=== PATIENT | male | born 1960 ===

== ENCOUNTER 2020-08-04 14:17 | Inpatient (IN) ==
[2020-08-04] MEDS ORDERED: Aspirin 325 MG TABLET PO ONE (14:26)
[2020-08-04 14:56] LABS: Prothrombin Time 11.7 Seconds (9.4-12.1)
[2020-08-04 14:59] LABS: Activated Partial Thrombo Time 28.7 Seconds (26.0-36.0)
[2020-08-04 15:09] LABS: Albumin 3.8 g/dL (3.5-5.7); Albumin/Globulin Ratio 1.2 (1.1-2.2); Bilirubin,Direct 0.6 mg/dL (0.0-0.2); Bilirubin,Indirect 0.9 mg/dL (0.0-1.0); Bilirubin,Total 1.5 mg/dL (0.3-1.0); Globulin 3.3 g/dL (2.4-3.5); Total Protein 7.1 g/dL (6.4-8.9)
[2020-08-04 15:17] LABS: Bilirubin,Urine Negative (Negative); Blood,Urine Small (Negative); Clarity,Urine Clear (Clear); Color,Urine Yellow (Yellow); Glucose,Urine (UA) Normal (Normal); Ketones,Urine Negative (Negative); Leukocyte Esterase,Urine Negative (Negative); Nitrite,Urine Negative (Negative); PH,Urine 6.5 pH Units (5.0-8.0); Protein,Urine Trace mg/dL (Neg-Trace); RBC,Urine 0-3 per hpf (0-3); Specific Gravity,Urine 1.015 (1.010-1.025)
[2020-08-04 15:17] LABS: BUN/Creatinine Ratio 17 (6-26); Blood Urea Nitrogen 5 mg/dL (6-20); Calcium 9.4 mg/dL (8.6-10.3); Carbon Dioxide 31 mEq/L (23-29); Chloride 61 mEq/L (98-107); Glucose 96 mg/dL (70-105); Osmolality,Calculated 217 (280-300); Potassium 2.8 mEq/L (3.5-5.1); Sodium 105 mEq/L (136-145); Troponin I < 0.03 ng/mL (< 0.04); eGFR For African Americans > 60 (> 60); eGFR For Non-African Americans > 60 (> 60)
[2020-08-04] MEDS ORDERED: Potassium Chloride 40 MEQ, Lidocaine 1% 2 ML in D5% in Water 500 ML IVPB ONE (15:27)
[2020-08-04 15:35] LABS: Sodium, Urine 20.3 mEq/L
[2020-08-04 15:56] LABS: Adenovirus Not Detected (Not Detect); Bordetella Pertussis Not Detected (Not Detect); Chlamydophila pneumoniae Not Detected (Not Detect); Coronavirus 229E Not Detected (Not Detect); Coronavirus HKU1 Not Detected (Not Detect); Coronavirus NL63 Not Detected (Not Detect); Coronavirus OC43 Not Detected (Not Detect); Human Metapneumovirus Not Detected (Not Detect); Human Rhinovirus/Enterovirus Not Detected (Not Detect); Influenza A Subtype 2009 H1 Not Detected (Not Detect); Influenza B Not Detected (Not Detect); Mycoplasma pneumoniae Not Detected (Not Detect); Parainfluenza Virus 1 Not Detected (Not Detect); Parainfluenza Virus 2 Not Detected (Not Detect); Parainfluenza Virus 3 Not Detected (Not Detect); Parainfluenza Virus 4 Not Detected (Not Detect); Respiratory Syncytial Virus Not Detected (Not Detect); SARS-CoV-2 Not Detected (Not Detect)
[2020-08-04 16:19] LABS: Basophils % 0.1 %; Hematocrit 41.1 % (37.5-50.1); Hemoglobin 15.5 g/dL (12.9-16.9); Immature Granulocytes % 0.6 % (0-4); Lymphocytes # 0.2 K/mcL (0.6-4.6); Lymphocytes % 2.9 %; Mean Corpuscular Hemoglobin 35.7 pg (28.0-33.3); Mean Corpuscular Volume 94.7 fL (83.0-100.0); Mean Platelet Volume 8.7 fL (9.4-12.4); Monocytes # 0.4 K/mcL (0.0-1.3); Monocytes % 5.2 %; Platelet Count 175 K/mcL (140-400); Red Blood Count 4.34 M/mcL (4.19-5.50); Red Cell Distribution Width 12.2 % (11.5-14.5); Segmented Neutrophils % 91.2 %; White Blood Count 7.7 K/mcL (4.3-11.1)
[2020-08-04 16:26] LABS: Mean Corpuscular HGB Conc 37.7 g/dL (31.6-35.5)
[2020-08-04] MEDS ORDERED: Isovue-370 500 ML BOTTLE IVP ONE (17:59)
[2020-08-04] MEDS ORDERED: *HR* LORazepam 2 MG/ML VIAL IVP PRN (17:59)
[2020-08-04] MEDS ORDERED: Acetaminophen 325 MG TABLET PO PRN (17:59)
[2020-08-04] MEDS ORDERED: Albuterol 2.5 MG/3 ML NEBULIZER IH PRN (17:59)
[2020-08-04] MEDS ORDERED: Naloxone 0.4 MG/ML INJ IVP PRN (17:59)
[2020-08-04] MEDS ORDERED: haloperidoL 5 MG TABLET PO PRN (18:10)
[2020-08-04] MEDS ORDERED: Sennosides/Docusate Sodium TABLET PO PRN (18:10)
[2020-08-04] MEDS ORDERED: Nitroglycerin 0.4 MG TAB.SUBL SL PRN (18:10)
[2020-08-04] MEDS ORDERED: Atropine Sulfate 1% 40 DROP/2 ML BOTTLE SL PRN (18:10)
[2020-08-04] MEDS ORDERED: *HR* LORazepam 0.5 MG TABLET PO PRN (18:10)
[2020-08-04 19:23] LABS: BUN/Creatinine Ratio 18 (6-26); Blood Urea Nitrogen 4 mg/dL (6-20); Calcium 8.6 mg/dL (8.6-10.3); Carbon Dioxide 31 mEq/L (23-29); Chloride 64 mEq/L (98-107); Glucose 116 mg/dL (70-105); Osmolality,Calculated 220 (280-300); Potassium 3.2 mEq/L (3.5-5.1); Sodium 106 mEq/L (136-145); eGFR For African Americans > 60 (> 60); eGFR For Non-African Americans > 60 (> 60)
[2020-08-04 19:29] LABS: Ethanol < 10 mg/dL (Less than 10)
[2020-08-04 19:40] LABS: Amphetamine Screen,Urine Negative ng/mL (Cutoff=1000); Barbiturate Screen,Urine Negative ng/mL (Cutoff=200); Benzodiazepines Screen,Urine Negative ng/mL (Cutoff=200); Cannabinoid Screen,Urine Positive ng/mL (Cutoff = 50); Cocaine Screen,Urine Negative ng/mL (Cutoff= 300); Opiate Screen,Urine Negative ng/mL (Cutoff=300); Phencyclidine Screen,Urine Negative ng/mL (Cutoff=25)
[2020-08-04] MEDS: Ipratropium/Albuterol Neb 3 ML IH SCH ×2 (20:48→23:37)
[2020-08-04] MEDS: Doxycycline 100 MG CAPSULE PO SCH (20:50)
[2020-08-04] MEDS: *HR* LORazepam 1 MG TABLET PO SCH (20:50)
[2020-08-04] MEDS: MethylPREDNISolone 40 MG/ML VIAL IVP SCH (20:50)
[2020-08-04] MEDS: Artificial Tears SOLN 15 ML BOTTLE BOTH EYES SCH (20:50)
[2020-08-04] MEDS ORDERED: Melatonin 3 MG TABLET PO SCH (21:00)
[2020-08-04] MEDS: Thiamine (B-1) 100 MG, Folic Acid 1 MG, MVI, adult with vitamin K 10 ML in 0.9 % Sodi... IVPB SCH (21:30)
[2020-08-04] MEDS: cloZAPine 100 MG TABLET PO SCH (22:10)
[2020-08-04] MEDS: Cefepime HCl 1,000 MG in Water for inj. (sterile) 10 ML IVP SCH (23:45)
[2020-08-05 01:45] LABS: Potassium 3.6 mEq/L (3.5-5.1)
[2020-08-05 03:30] LABS: Eosinophils % 0.2 %; Hematocrit 31.2 % (37.5-50.1); Hemoglobin 11.6 g/dL (12.9-16.9); Immature Granulocytes % 0.5 % (0-4); Lymphocytes # 0.1 K/mcL (0.6-4.6); Lymphocytes % 1.8 %; Mean Corpuscular Hemoglobin 35.5 pg (28.0-33.3); Mean Corpuscular Volume 95.4 fL (83.0-100.0); Mean Platelet Volume 9.2 fL (9.4-12.4); Monocytes # 0.1 K/mcL (0.0-1.3); Monocytes % 1.8 %; Neutrophils # 5.4 K/mcL (1.6-8.9); Platelet Count 167 K/mcL (140-400); Red Blood Count 3.27 M/mcL (4.19-5.50); Segmented Neutrophils % 95.7 %; White Blood Count 5.6 K/mcL (4.3-11.1)
[2020-08-05 03:38] LABS: Alanine Aminotransferase 24 Units/L (7-52); Albumin 3.1 g/dL (3.5-5.7); Albumin/Globulin Ratio 1.2 (1.1-2.2); Alkaline Phosphatase 56 Units/L (34-104); Aspartate Amino Transferase 55 Units/L (13-39); BUN/Creatinine Ratio 19 (6-26); Bilirubin,Direct 0.3 mg/dL (0.0-0.2); Bilirubin,Indirect 0.6 mg/dL (0.0-1.0); Bilirubin,Total 0.9 mg/dL (0.3-1.0); Blood Urea Nitrogen 5 mg/dL (6-20); Carbon Dioxide 31 mEq/L (23-29); Chloride 66 mEq/L (98-107); Globulin 2.5 g/dL (2.4-3.5); Glucose 177 mg/dL (70-105); Magnesium 1.1 mg/dL (1.6-2.6); Osmolality,Calculated 220 (280-300); Phosphorous 2.4 mg/dL (2.7-4.5); Potassium 3.3 mEq/L (3.5-5.1); Sodium 104 mEq/L (136-145); Total Protein 5.6 g/dL (6.4-8.9); eGFR For African Americans > 60 (> 60); eGFR For Non-African Americans > 60 (> 60)
[2020-08-05] MEDS: Ipratropium/Albuterol Neb 3 ML IH SCH ×5 (03:52→19:59)
[2020-08-05 04:43] LABS: Mean Corpuscular HGB Conc 37.2 g/dL (31.6-35.5)
[2020-08-05] MEDS ORDERED: 0.9 % Sodium Chloride 250 ML IVC SCH (05:15)
[2020-08-05] MEDS ORDERED: 0.9 % Sodium Chloride 1,000 ML IVC SCH (05:24)
[2020-08-05] MEDS: MethylPREDNISolone 40 MG/ML VIAL IVP SCH (05:30)
[2020-08-05 07:23] LABS: BUN/Creatinine Ratio 21 (6-26); Blood Urea Nitrogen 6 mg/dL (6-20); Calcium 8.1 mg/dL (8.6-10.3); Carbon Dioxide 31 mEq/L (23-29); Chloride 67 mEq/L (98-107); Glucose 175 mg/dL (70-105); Osmolality,Calculated 224 (280-300); Potassium 3.2 mEq/L (3.5-5.1); Sodium 106 mEq/L (136-145); eGFR For African Americans > 60 (> 60); eGFR For Non-African Americans > 60 (> 60)
[2020-08-05] MEDS: Cefepime HCl 1,000 MG in Water for inj. (sterile) 10 ML IVP SCH ×3 (08:27→23:58)
[2020-08-05] MEDS: Artificial Tears SOLN 15 ML BOTTLE BOTH EYES SCH ×5 (08:28→23:55)
[2020-08-05] MEDS: *HR* LORazepam 1 MG TABLET PO SCH ×2 (08:28→21:32)
[2020-08-05] MEDS: cloZAPine 100 MG TABLET PO SCH ×2 (08:29→21:32)
[2020-08-05] MEDS: Famotidine 20 MG TABLET PO SCH (08:29)
[2020-08-05] MEDS: Doxycycline 100 MG CAPSULE PO SCH ×2 (08:29→21:33)
[2020-08-05 08:33] LABS: ABG Base Excess 5 mEq/L (-2 to 3); ABG HCO3 33 mEq/L (21-27); ABG Oxygen Saturation 87 % (95-98); ABG PCO2 68 mmHg (35-45); ABG PO2 62 mmHg (85-104); ABG TCO2 35 mEq/L (20-26)
[2020-08-05] MEDS ORDERED: polyethylene glycoL 3350 17 GM POWD.PACK PO SCH (09:00)
[2020-08-05] MEDS ORDERED: Finasteride 5 MG TABLET PO SCH (09:00)
[2020-08-05] MEDS ORDERED: Pantoprazole 40 MG VIAL IVP SCH (09:00)
[2020-08-05] MEDS ORDERED: Albumin Human 5% 12.5 GM/250 ML IV.SOLN ONE (09:02)
[2020-08-05] MEDS: Midazolam HCl 50 MG/100 ML IV.SOLN IVC SCH (09:52)
[2020-08-05] MEDS: FentaNYL (PF) 1,000 MCG/100 ML IV.SOLN IVC SCH ×2 (09:53→16:17)
[2020-08-05] MEDS: Chlorhexidine Rinse 15 ML MOUTHWASH MM SCH ×2 (10:35→21:40)
[2020-08-05] MEDS: Potassium Phosphate 44 MEQ in 0.9 % Sodium Chloride 250 ML IVPB PRN (10:36)
[2020-08-05] MEDS: Norepinephrine 4 MG/254 ML IV.SOLN IVC SCH ×3 (10:37→20:00)
[2020-08-05 11:11] LABS: Chol/HDL Ratio 1.6 (0-4.9)
[2020-08-05] MEDS: Budesonide/Formoterol 160/4.5 1 PUFF INH IH SCH ×2 (11:48→20:00)
[2020-08-05] MEDS ORDERED: *HR* 3% Sodium Chloride 500 ML IV.SOLN IVC ONE (12:15)
[2020-08-05] MEDS ORDERED: *HR* Succinylcholine 200 MG/10 ML VIAL IVP ONE (12:24)
[2020-08-05] MEDS ORDERED: *HR* Propofol 200 MG/20 ML VIAL IVP ONE (12:24)
[2020-08-05] MEDS ORDERED: *HR* Etomidate 40 MG/20 ML VIAL IVP ONE (12:24)
[2020-08-05] MEDS ORDERED: *HR* Midazolam HCl 5 MG/5 ML VIAL IVP ONE (12:24)
[2020-08-05 13:36] LABS: BUN/Creatinine Ratio 29 (6-26); Blood Urea Nitrogen 7 mg/dL (6-20); Calcium 7.9 mg/dL (8.6-10.3); Carbon Dioxide 25 mEq/L (23-29); Chloride 70 mEq/L (98-107); Glucose 220 mg/dL (70-105); Osmolality,Calculated 231 (280-300); Sodium 108 mEq/L (136-145); eGFR For African Americans > 60 (> 60); eGFR For Non-African Americans > 60 (> 60)
[2020-08-05 13:57] LABS: ABG Base Excess 1 mEq/L (-2 to 3); ABG HCO3 24 mEq/L (21-27); ABG Oxygen Saturation 100 % (95-98); ABG PCO2 33 mmHg (35-45); ABG PH 7.48 pH Units (7.32-7.45); ABG PO2 343 mmHg (85-104); ABG TCO2 25 mEq/L (20-26); Blood Gas Modality VC+; Blood Gas VT 480 cc
[2020-08-05] MEDS: Pantoprazole 40 MG in 0.9 % Sodium Chloride Mini Bag 100 ML IVC SCH ×3 (16:15→21:40)
[2020-08-05 16:20] LABS: BUN/Creatinine Ratio 28 (6-26); Blood Urea Nitrogen 7 mg/dL (6-20); Calcium 8.1 mg/dL (8.6-10.3); Carbon Dioxide 25 mEq/L (23-29); Chloride 76 mEq/L (98-107); Glucose 244 mg/dL (70-105); Magnesium 1.7 mg/dL (1.6-2.6); Osmolality,Calculated 242 (280-300); Phosphorous 3.3 mg/dL (2.7-4.5); Sodium 113 mEq/L (136-145); eGFR For African Americans > 60 (> 60); eGFR For Non-African Americans > 60 (> 60)
[2020-08-05 17:01] LABS: VBG Ionized Calcium 1.04 mmol/L (1.15-1.35)
[2020-08-05] MEDS: Albumin Human 5% 12.5 GM/250 ML IV.SOLN IVC SCH ×2 (17:13→17:57)
[2020-08-05] MEDS: Thiamine (B-1) 100 MG, Folic Acid 1 MG, MVI, adult with vitamin K 10 ML in 0.9 % Sodi... IVPB SCH (17:23)
[2020-08-05 21:18] LABS: Hematocrit 29.6 % (37.5-50.1); Hemoglobin 11.1 g/dL (12.9-16.9)
[2020-08-05] MEDS ORDERED: D5% in Water 1,000 ML IVC SCH (21:30)
[2020-08-05] MEDS: Norepinephrine 8 MG in 0.9 % Sodium Chloride 250 ML IVC SCH (23:51)
[2020-08-05] MEDS ORDERED: *HR* Dextrose 50 % in Water (Vial) 50 ML VIAL IVP PRN (23:59)
[2020-08-05] MEDS ORDERED: D5% in Water 1,000 ML IVC PRN (23:59)
[2020-08-05] MEDS ORDERED: Dextrose Gel 15 GM/37.5 ML TUBE PO PRN ×2 (23:59)
[2020-08-06] MEDS: Ipratropium/Albuterol Neb 3 ML IH SCH ×7 (00:17→23:40)
[2020-08-06] MEDS: Insulin LISPRO 300 UNITS/3 ML VIAL SQ SCH ×5 (00:22→23:52)
[2020-08-06] MEDS ORDERED: D5% in Water 1,000 ML IVC SCH ×2 (00:54→07:00)
[2020-08-06] MEDS: Potassium Chloride 40 MEQ/200 ML BAG IVPB PRN ×2 (00:59→23:41)
[2020-08-06] MEDS: Pantoprazole 40 MG in 0.9 % Sodium Chloride Mini Bag 100 ML IVC SCH ×5 (03:04→23:54)
[2020-08-06] MEDS: Artificial Tears SOLN 15 ML BOTTLE BOTH EYES SCH ×6 (03:43→23:51)
[2020-08-06] MEDS: Norepinephrine 8 MG in 0.9 % Sodium Chloride 250 ML IVC SCH (04:09)
[2020-08-06 04:18] LABS: VBG Ionized Calcium 1.13 mmol/L (1.15-1.35)
[2020-08-06 04:30] LABS: Eosinophils % 0.2 %; Hematocrit 27.4 % (37.5-50.1); Hemoglobin 9.9 g/dL (12.9-16.9); Immature Granulocytes % 0.3 % (0-4); Lymphocytes # 0.1 K/mcL (0.6-4.6); Lymphocytes % 0.7 %; Mean Corpuscular HGB Conc 36.1 g/dL (31.6-35.5); Mean Corpuscular Hemoglobin 35.2 pg (28.0-33.3); Mean Corpuscular Volume 97.5 fL (83.0-100.0); Mean Platelet Volume 9.4 fL (9.4-12.4); Monocytes # 0.8 K/mcL (0.0-1.3); Monocytes % 6.3 %; Neutrophils # 12.1 K/mcL (1.6-8.9); Platelet Count 173 K/mcL (140-400); Red Blood Count 2.81 M/mcL (4.19-5.50); Red Cell Distribution Width 12.2 % (11.5-14.5); Segmented Neutrophils % 92.5 %
[2020-08-06 04:38] LABS: White Blood Count 13.1 K/mcL (4.3-11.1)
[2020-08-06 04:43] LABS: BUN/Creatinine Ratio 17 (6-26); Blood Urea Nitrogen 6 mg/dL (6-20); Calcium 7.8 mg/dL (8.6-10.3); Carbon Dioxide 27 mEq/L (23-29); Chloride 85 mEq/L (98-107); Glucose 200 mg/dL (70-105); Magnesium 1.3 mg/dL (1.6-2.6); Osmolality,Calculated 245 (280-300); Phosphorous 1.6 mg/dL (2.7-4.5); Potassium 3.4 mEq/L (3.5-5.1); Sodium 116 mEq/L (136-145); eGFR For African Americans > 60 (> 60); eGFR For Non-African Americans > 60 (> 60)
[2020-08-06 05:11] LABS: Platelet Estimate Normal (Normal)
[2020-08-06] MEDS: Doxycycline 100 MG in 0.9 % Sodium Chloride Mini Bag 100 ML IVPB SCH ×2 (05:38→18:26)
[2020-08-06 05:53] LABS: ABG Base Excess 2 mEq/L (-2 to 3); ABG HCO3 28 mEq/L (21-27); ABG Oxygen Saturation 94 % (95-98); ABG PCO2 48 mmHg (35-45); ABG PH 7.37 pH Units (7.32-7.45); ABG PO2 72 mmHg (85-104); ABG TCO2 30 mEq/L (20-26); Blood Gas Modality ASSIST CONTROL; Blood Gas VT 480 cc
[2020-08-06] MEDS: Potassium Phosphate 44 MEQ in 0.9 % Sodium Chloride 250 ML IVPB PRN (06:25)
[2020-08-06] MEDS: Budesonide/Formoterol 160/4.5 1 PUFF INH IH SCH ×2 (07:55→20:17)
[2020-08-06] MEDS: Famotidine 20 MG TABLET PO SCH ×2 (08:23→09:06)
[2020-08-06] MEDS: Cefepime HCl 1,000 MG in Water for inj. (sterile) 10 ML IVP SCH ×3 (08:23→23:50)
[2020-08-06] MEDS: Chlorhexidine Rinse 15 ML MOUTHWASH MM SCH ×2 (08:23→20:28)
[2020-08-06] MEDS: Midazolam HCl 50 MG/100 ML IV.SOLN IVC SCH (08:27)
[2020-08-06] MEDS: *HR* LORazepam 1 MG TABLET PO SCH ×2 (08:28→20:26)
[2020-08-06] MEDS: Phenylephrine 10 MG in 0.9 % Sodium Chloride 250 ML IVC SCH ×5 (08:28→22:23)
[2020-08-06] MEDS: cloZAPine 100 MG TABLET PO SCH ×2 (08:28→20:27)
[2020-08-06] MEDS: D5% in Water 1,000 ML IVC SCH ×5 (08:30→23:52)
[2020-08-06 12:57] LABS: Hematocrit 26.7 % (37.5-50.1); Hemoglobin 9.8 g/dL (12.9-16.9)
[2020-08-06 18:49] LABS: Magnesium 1.5 mg/dL (1.6-2.6); Phosphorous 3.5 mg/dL (2.7-4.5); Potassium 3.7 mEq/L (3.5-5.1)
[2020-08-06] MEDS: Thiamine (B-1) 100 MG, Folic Acid 1 MG, MVI, adult with vitamin K 10 ML in 0.9 % Sodi... IVPB SCH (19:12)
[2020-08-07] MEDS: Phenylephrine 10 MG in 0.9 % Sodium Chloride 250 ML IVC SCH ×4 (01:48→11:34)
[2020-08-07] MEDS: Ipratropium/Albuterol Neb 3 ML IH SCH ×6 (03:45→23:56)
[2020-08-07] MEDS: Artificial Tears SOLN 15 ML BOTTLE BOTH EYES SCH ×7 (03:58→23:27)
[2020-08-07 04:13] LABS: VBG Ionized Calcium 1.11 mmol/L (1.15-1.35)
[2020-08-07 04:32] LABS: BUN/Creatinine Ratio 13 (6-26); Blood Urea Nitrogen 4 mg/dL (6-20); Calcium 6.9 mg/dL (8.6-10.3); Carbon Dioxide 25 mEq/L (23-29); Chloride 87 mEq/L (98-107); Glucose 112 mg/dL (70-105); Osmolality,Calculated 236 (280-300); Phosphorous 2.4 mg/dL (2.7-4.5); Potassium 4.8 mEq/L (3.5-5.1); Sodium 114 mEq/L (136-145); eGFR For African Americans > 60 (> 60); eGFR For Non-African Americans > 60 (> 60)
[2020-08-07] MEDS: D5% in Water 1,000 ML IVC SCH ×3 (05:14→17:56)
[2020-08-07 05:20] LABS: ABG Base Excess -1 mEq/L (-2 to 3); ABG HCO3 25 mEq/L (21-27); ABG Oxygen Saturation 96 % (95-98); ABG PCO2 51 mmHg (35-45); ABG PO2 87 mmHg (85-104); ABG TCO2 27 mEq/L (20-26); Blood Gas Modality ASSIST CONTROL; Blood Gas VT 480 cc
[2020-08-07] MEDS: Pantoprazole 40 MG in 0.9 % Sodium Chloride Mini Bag 100 ML IVC SCH ×3 (05:22→15:41)
[2020-08-07] MEDS: Doxycycline 100 MG in 0.9 % Sodium Chloride Mini Bag 100 ML IVPB SCH ×2 (05:23→18:19)
[2020-08-07] MEDS: Insulin LISPRO 300 UNITS/3 ML VIAL SQ SCH ×4 (05:24→23:27)
[2020-08-07 06:45] LABS: Hemoglobin 9.3 g/dL (12.9-16.9); Immature Granulocytes % 0.4 % (0-4); Mean Platelet Volume 9.6 fL (9.4-12.4)
[2020-08-07 06:47] LABS: Hematocrit 25.6 % (37.5-50.1); Immature Platelets 4.6 % (1.1-6.1); Lymphocytes # 0.3 K/mcL (0.6-4.6); Lymphocytes % 2.7 %; Mean Corpuscular HGB Conc 36.3 g/dL (31.6-35.5); Mean Corpuscular Hemoglobin 37.1 pg (28.0-33.3); Monocytes % 8.7 %; Platelet Count 155 K/mcL (140-400); Red Blood Count 2.51 M/mcL (4.19-5.50); Red Cell Distribution Width 12.6 % (11.5-14.5); Segmented Neutrophils % 88.2 %; White Blood Count 11.4 K/mcL (4.3-11.1)
[2020-08-07 07:02] LABS: Neutrophils # 10.1 K/mcL (1.6-8.9)
[2020-08-07] MEDS: Budesonide/Formoterol 160/4.5 1 PUFF INH IH SCH ×2 (07:37→20:17)
[2020-08-07] MEDS: Cefepime HCl 1,000 MG in Water for inj. (sterile) 10 ML IVP SCH ×3 (08:06→23:29)
[2020-08-07] MEDS: Chlorhexidine Rinse 15 ML MOUTHWASH MM SCH ×2 (08:11→19:40)
[2020-08-07] MEDS: cloZAPine 100 MG TABLET PO SCH ×2 (08:11→19:40)
[2020-08-07] MEDS: *HR* LORazepam 1 MG TABLET PO SCH ×2 (08:11→19:40)
[2020-08-07] MEDS: Midazolam HCl 50 MG/100 ML IV.SOLN IVC SCH (12:35)
[2020-08-07] MEDS: FentaNYL (PF) 1,000 MCG/100 ML IV.SOLN IVC SCH (12:36)
[2020-08-07] MEDS: Phenylephrine 50 MG in 0.9 % Sodium Chloride 250 ML IVC SCH ×2 (13:43→19:33)
[2020-08-07] MEDS ORDERED: Calcium Gluconate 1gm/50mL 1 GM/50 ML BAG IVPB ONE (16:23)
[2020-08-07] MEDS ORDERED: Ringers Solution, Lactated 500 ML IVC ONE (16:36)
[2020-08-07] MEDS ORDERED: Albumin 25% 25gram/100mL 25 GM/100 ML IV.SOLN IVPB ONE (16:56)
[2020-08-07] MEDS ORDERED: Vasopressin 40 UNIT in D5% in Water 100 ML IVC SCH (17:15)
[2020-08-07] MEDS ORDERED: Bisacodyl 10 MG RECTAL SUPPOSITORY RC SCH (18:10)
[2020-08-07] MEDS ORDERED: Albumin Human 5% 12.5 GM/250 ML IV.SOLN IVPB ONE (20:34)
[2020-08-07 22:15] LABS: Appearance of Body Fluid Hazy (Clear); Volume of Body Fluid 15 mL
[2020-08-08] MEDS: Phenylephrine 50 MG in 0.9 % Sodium Chloride 250 ML IVC SCH ×5 (00:45→21:00)
[2020-08-08] MEDS: Artificial Tears SOLN 15 ML BOTTLE BOTH EYES SCH ×5 (03:41→19:14)
[2020-08-08] MEDS: D5% in Water 1,000 ML IVC SCH ×6 (03:41→22:48)
[2020-08-08] MEDS: Ipratropium/Albuterol Neb 3 ML IH SCH ×6 (03:54→23:21)
[2020-08-08] MEDS: Vasopressin 40 UNIT in D5% in Water 100 ML IVC SCH ×2 (04:08→10:36)
[2020-08-08 04:21] LABS: Eosinophils % 0.1 %; Hematocrit 25.2 % (37.5-50.1); Hemoglobin 8.4 g/dL (12.9-16.9); Immature Granulocytes % 0.7 % (0-4); Immature Platelets 5.6 % (1.1-6.1); Lymphocytes # 0.2 K/mcL (0.6-4.6); Lymphocytes % 1.3 %; Mean Corpuscular HGB Conc 33.3 g/dL (31.6-35.5); Mean Corpuscular Hemoglobin 35.6 pg (28.0-33.3); Mean Corpuscular Volume 106.8 fL (83.0-100.0); Mean Platelet Volume 9.6 fL (9.4-12.4); Monocytes % 8.2 %; Neutrophils # 11.4 K/mcL (1.6-8.9); Nucleated Red Blood Cells 0.2 /100 WBC (0); Platelet Count 124 K/mcL (140-400); Red Blood Count 2.36 M/mcL (4.19-5.50); Red Cell Distribution Width 13.1 % (11.5-14.5); Segmented Neutrophils % 89.7 %; White Blood Count 12.7 K/mcL (4.3-11.1)
[2020-08-08 04:41] LABS: ABG Base Excess 0 mEq/L (-2 to 3); ABG HCO3 29 mEq/L (21-27); ABG Oxygen Saturation 98 % (95-98); ABG PCO2 80 mmHg (35-45); ABG PH 7.17 pH Units (7.32-7.45); ABG PO2 130 mmHg (85-104); ABG TCO2 32 mEq/L (20-26); Blood Gas Modality ASSIST CONTROL; Blood Gas VT 400 cc
[2020-08-08 04:42] LABS: Alanine Aminotransferase 22 Units/L (7-52); Albumin 2.9 g/dL (3.5-5.7); Albumin/Globulin Ratio 1.8 (1.1-2.2); Alkaline Phosphatase 43 Units/L (34-104); Aspartate Amino Transferase 45 Units/L (13-39); BUN/Creatinine Ratio 17 (6-26); Bilirubin,Total 0.5 mg/dL (0.3-1.0); Blood Urea Nitrogen 5 mg/dL (6-20); Calcium 7.5 mg/dL (8.6-10.3); Carbon Dioxide 28 mEq/L (23-29); Chloride 91 mEq/L (98-107); Globulin 1.6 g/dL (2.4-3.5); Glucose 129 mg/dL (70-105); Osmolality,Calculated 247 (280-300); Phosphorous 2.5 mg/dL (2.7-4.5); Potassium 4.5 mEq/L (3.5-5.1); Sodium 119 mEq/L (136-145); Total Protein 4.5 g/dL (6.4-8.9); eGFR For African Americans > 60 (> 60); eGFR For Non-African Americans > 60 (> 60)
[2020-08-08 05:32] LABS: Magnesium 1.5 mg/dL (1.6-2.6)
[2020-08-08] MEDS: Doxycycline 100 MG in 0.9 % Sodium Chloride Mini Bag 100 ML IVPB SCH ×2 (05:40→18:21)
[2020-08-08] MEDS: Pantoprazole 40 MG VIAL IVP SCH ×2 (05:41→18:21)
[2020-08-08] MEDS: Insulin LISPRO 300 UNITS/3 ML VIAL SQ SCH ×3 (05:41→18:16)
[2020-08-08 06:00] LABS: Platelet Estimate Slight Decrease (Normal)
[2020-08-08] MEDS: Budesonide/Formoterol 160/4.5 1 PUFF INH IH SCH ×2 (07:38→19:23)
[2020-08-08] MEDS: Cefepime HCl 1,000 MG in Water for inj. (sterile) 10 ML IVP SCH ×2 (07:58→16:12)
[2020-08-08] MEDS: *HR* LORazepam 1 MG TABLET PO SCH ×2 (07:58→19:16)
[2020-08-08] MEDS: Chlorhexidine Rinse 15 ML MOUTHWASH MM SCH ×2 (07:58→19:18)
[2020-08-08] MEDS: cloZAPine 100 MG TABLET PO SCH ×2 (07:59→19:17)
[2020-08-08] MEDS: Midazolam HCl 50 MG/100 ML IV.SOLN IVC SCH (08:50)
[2020-08-08] MEDS: FentaNYL (PF) 1,000 MCG/100 ML IV.SOLN IVC SCH (08:50)
[2020-08-08 10:38] LABS: Phosphorous 2.5 mg/dL (2.7-4.5)
[2020-08-08] MEDS: 0.9 % Sodium Chloride 1,000 ML IVC SCH (12:40)
[2020-08-08] MEDS ORDERED: Potassium Phosphate 44 MEQ in 0.9 % Sodium Chloride 250 ML IVPB ONE (13:28)
[2020-08-08] MEDS ORDERED: Calcium Gluconate 1gm/50mL 1 GM/50 ML BAG IVPB ONE (13:31)
[2020-08-08 22:20] LABS: VBG Ionized Calcium 1.15 mmol/L (1.15-1.35)
[2020-08-08 22:44] LABS: Magnesium 1.8 mg/dL (1.6-2.6)
[2020-08-09] MEDS: Insulin LISPRO 300 UNITS/3 ML VIAL SQ SCH ×4 (00:15→17:51)
[2020-08-09] MEDS: Cefepime HCl 1,000 MG in Water for inj. (sterile) 10 ML IVP SCH ×3 (00:15→16:48)
[2020-08-09] MEDS: Artificial Tears SOLN 15 ML BOTTLE BOTH EYES SCH ×6 (00:15→20:25)
[2020-08-09] MEDS: D5% in Water 1,000 ML IVC SCH ×4 (01:42→17:52)
[2020-08-09] MEDS: Phenylephrine 50 MG in 0.9 % Sodium Chloride 250 ML IVC SCH ×2 (01:45→10:04)
[2020-08-09] MEDS: 0.9 % Sodium Chloride 1,000 ML IVC SCH ×2 (03:09→13:52)
[2020-08-09] MEDS: Ipratropium/Albuterol Neb 3 ML IH SCH ×5 (03:17→20:53)
[2020-08-09 04:24] LABS: ABG Base Excess 2 mEq/L (-2 to 3); ABG HCO3 30 mEq/L (21-27); ABG Oxygen Saturation 92 % (95-98); ABG PCO2 71 mmHg (35-45); ABG PH 7.23 pH Units (7.32-7.45); ABG PO2 79 mmHg (85-104); ABG TCO2 32 mEq/L (20-26); Blood Gas Modality ASSIST CONTROL; Blood Gas VT 450 cc
[2020-08-09 04:24] LABS: Mean Platelet Volume 9.8 fL (9.4-12.4)
[2020-08-09 04:26] LABS: Eosinophils % 0.1 %; Hematocrit 24.7 % (37.5-50.1); Hemoglobin 8.1 g/dL (12.9-16.9); Immature Granulocytes % 0.6 % (0-4); Immature Platelets 5.4 % (1.1-6.1); Lymphocytes # 0.2 K/mcL (0.6-4.6); Lymphocytes % 1.4 %; Mean Corpuscular HGB Conc 32.8 g/dL (31.6-35.5); Mean Corpuscular Hemoglobin 35.2 pg (28.0-33.3); Mean Corpuscular Volume 107.4 fL (83.0-100.0); Monocytes # 1.5 K/mcL (0.0-1.3); Monocytes % 10.9 %; Nucleated Red Blood Cells 0.1 /100 WBC (0); Platelet Count 118 K/mcL (140-400); Red Cell Distribution Width 13.5 % (11.5-14.5); White Blood Count 13.8 K/mcL (4.3-11.1)
[2020-08-09 04:43] LABS: VBG Ionized Calcium 1.16 mmol/L (1.15-1.35)
[2020-08-09 04:44] LABS: BUN/Creatinine Ratio 29 (6-26); Blood Urea Nitrogen 8 mg/dL (6-20); Calcium 7.3 mg/dL (8.6-10.3); Carbon Dioxide 28 mEq/L (23-29); Chloride 97 mEq/L (98-107); Glucose 92 mg/dL (70-105); Magnesium 2.1 mg/dL (1.6-2.6); Osmolality,Calculated 258 (280-300); Phosphorous 2.4 mg/dL (2.7-4.5); Potassium 5.1 mEq/L (3.5-5.1); Sodium 125 mEq/L (136-145); eGFR For African Americans > 60 (> 60); eGFR For Non-African Americans > 60 (> 60)
[2020-08-09] MEDS: Pantoprazole 40 MG VIAL IVP SCH ×2 (06:14→17:52)
[2020-08-09] MEDS: Doxycycline 100 MG in 0.9 % Sodium Chloride Mini Bag 100 ML IVPB SCH ×2 (06:15→17:52)
[2020-08-09] MEDS: Vasopressin 40 UNIT in D5% in Water 100 ML IVC SCH (06:34)
[2020-08-09 08:09] LABS: Alpha 2 Globulin (PEP) 0.45 g/dL (0.48-1.05); Beta Globulin (PEP) 0.68 g/dL (0.48-1.10)
[2020-08-09 09:44] LABS: IFE Reflexed IFE Done; Immunoglobulin A 394 mg/dL (68-408); Immunoglobulin G 719 mg/dL (768-1632); Immunoglobulin M 284 mg/dL (35-263)
[2020-08-09] MEDS: Chlorhexidine Rinse 15 ML MOUTHWASH MM SCH ×2 (09:58→20:26)
[2020-08-09] MEDS: cloZAPine 100 MG TABLET PO SCH ×2 (09:59→20:26)
[2020-08-09] MEDS: FentaNYL (PF) 1,000 MCG/100 ML IV.SOLN IVC SCH (09:59)
[2020-08-09] MEDS: Midazolam HCl 50 MG/100 ML IV.SOLN IVC SCH (09:59)
[2020-08-09] MEDS: *HR* LORazepam 1 MG TABLET PO SCH (10:02)
[2020-08-09] MEDS: Budesonide/Formoterol 160/4.5 1 PUFF INH IH SCH ×2 (11:46→20:53)
[2020-08-09] MEDS ORDERED: *HR* FentaNYL (PF) 100 MCG/2 ML VIAL IVP PRN (15:27)
[2020-08-09] MEDS ORDERED: Glycopyrrolate 0.2 MG/ML VIAL IVP PRN (15:27)
[2020-08-09] MEDS ORDERED: *HR* LORazepam 2 MG/ML VIAL IVP SCH (15:30)
[2020-08-09] MEDS ORDERED: *HR* LORazepam 2 MG/ML VIAL IVP PRN ×2 (20:52→21:15)
[2020-08-10] MEDS: Ipratropium/Albuterol Neb 3 ML IH SCH ×7 (00:20→22:55)
[2020-08-10] MEDS: Cefepime HCl 1,000 MG in Water for inj. (sterile) 10 ML IVP SCH ×2 (00:33→08:12)
[2020-08-10] MEDS: Artificial Tears SOLN 15 ML BOTTLE BOTH EYES SCH ×5 (00:33→16:52)
[2020-08-10] MEDS: 0.9 % Sodium Chloride 1,000 ML IVC SCH (03:37)
[2020-08-10] MEDS: Pantoprazole 40 MG VIAL IVP SCH ×2 (05:44→16:38)
[2020-08-10] MEDS: Budesonide/Formoterol 160/4.5 1 PUFF INH IH SCH ×2 (07:24→20:07)
[2020-08-10 08:22] LABS: Mean Platelet Volume 9.9 fL (9.4-12.4)
[2020-08-10 08:24] LABS: Hematocrit 25.5 % (37.5-50.1); Hemoglobin 8.5 g/dL (12.9-16.9); Immature Platelets 4.6 % (1.1-6.1); Mean Corpuscular HGB Conc 33.3 g/dL (31.6-35.5); Mean Corpuscular Hemoglobin 36.2 pg (28.0-33.3); Mean Corpuscular Volume 108.5 fL (83.0-100.0); Red Blood Count 2.35 M/mcL (4.19-5.50); Red Cell Distribution Width 13.7 % (11.5-14.5); White Blood Count 12.4 K/mcL (4.3-11.1)
[2020-08-10 12:01] LABS: Blood Urea Nitrogen 5 mg/dL (6-20); Calcium 8.4 mg/dL (8.6-10.3); Carbon Dioxide 30 mEq/L (23-29); Chloride 97 mEq/L (98-107); Glucose 77 mg/dL (70-105); Magnesium 1.6 mg/dL (1.6-2.6); Osmolality,Calculated 270 (280-300); Phosphorous 2.6 mg/dL (2.7-4.5); Potassium 4.5 mEq/L (3.5-5.1); Sodium 132 mEq/L (136-145)
[2020-08-10] MEDS ORDERED: *HR* LORazepam 2 MG/ML VIAL IVP PRN ×2 (13:51→17:34)
[2020-08-10] MEDS ORDERED: Furosemide 20 MG/2 ML VIAL IVP SCH (14:15)
[2020-08-10] MEDS ORDERED: Cefepime HCl 2,000 MG in Water for inj. (sterile) 20 ML IVP SCH ×2 (16:00→18:00)
[2020-08-10] MEDS ORDERED: Water for inj. (sterile) 20 ML IV ONE (16:42)
[2020-08-10] MEDS ORDERED: Sennosides/Docusate Sodium TABLET PO PRN (17:34)
[2020-08-10] MEDS ORDERED: haloperidoL 5 MG TABLET PO PRN (17:34)
[2020-08-10] MEDS ORDERED: Albuterol 2.5 MG/3 ML NEBULIZER IH PRN (17:34)
[2020-08-10] MEDS ORDERED: Naloxone 0.4 MG/ML INJ IVP PRN (17:34)
[2020-08-10] MEDS ORDERED: Acetaminophen 325 MG TABLET PO PRN (17:34)
[2020-08-10] MEDS: Thiamine (B-1) 100 MG in 0.9 % Sodium Chloride 50 ML IVPB SCH (19:23)
[2020-08-10] MEDS: Folic Acid 1 MG in 0.9 % Sodium Chloride 50 ML IVPB SCH (19:23)
[2020-08-11] MEDS: Cefepime HCl 2,000 MG in Water for inj. (sterile) 20 ML IVP SCH ×4 (00:41→23:33)
[2020-08-11] MEDS: Ipratropium/Albuterol Neb 3 ML IH SCH ×6 (03:39→23:56)
[2020-08-11 05:57] LABS: Basophils % 0.1 %; Hematocrit 23.4 % (37.5-50.1); Hemoglobin 7.7 g/dL (12.9-16.9); Immature Granulocytes % 0.6 % (0-4); Lymphocytes # 0.4 K/mcL (0.6-4.6); Lymphocytes % 3.3 %; Mean Corpuscular HGB Conc 32.9 g/dL (31.6-35.5); Mean Corpuscular Hemoglobin 35.2 pg (28.0-33.3); Mean Corpuscular Volume 106.8 fL (83.0-100.0); Mean Platelet Volume 9.9 fL (9.4-12.4); Monocytes # 1.3 K/mcL (0.0-1.3); Monocytes % 12.4 %; Platelet Count 140 K/mcL (140-400); Red Blood Count 2.19 M/mcL (4.19-5.50); Red Cell Distribution Width 13.7 % (11.5-14.5); Segmented Neutrophils % 83.6 %; White Blood Count 10.7 K/mcL (4.3-11.1)
[2020-08-11 05:58] LABS: BUN/Creatinine Ratio 27 (6-26); Blood Urea Nitrogen 7 mg/dL (6-20); Calcium 8.4 mg/dL (8.6-10.3); Carbon Dioxide 32 mEq/L (23-29); Chloride 94 mEq/L (98-107); Glucose 81 mg/dL (70-105); Magnesium 1.5 mg/dL (1.6-2.6); Osmolality,Calculated 275 (280-300); Phosphorous 2.8 mg/dL (2.7-4.5); Potassium 3.7 mEq/L (3.5-5.1); Sodium 134 mEq/L (136-145); eGFR For African Americans > 60 (> 60); eGFR For Non-African Americans > 60 (> 60)
[2020-08-11] MEDS: Budesonide/Formoterol 160/4.5 1 PUFF INH IH SCH ×2 (07:34→19:51)
[2020-08-11] MEDS: Folic Acid 1 MG in 0.9 % Sodium Chloride 50 ML IVPB SCH (07:47)
[2020-08-11] MEDS: Thiamine (B-1) 100 MG in 0.9 % Sodium Chloride 50 ML IVPB SCH (07:48)
[2020-08-11] MEDS: Furosemide 20 MG/2 ML VIAL IVP SCH (08:07)
[2020-08-11] MEDS ORDERED: Water for inj. (sterile) 20 ML IV ONE (08:08)
[2020-08-11] MEDS ORDERED: *HR* OxyCODONE Immed Rel 5 MG TABLET PO PRN (09:25)
[2020-08-11] MEDS: Calcium Gluconate 1gm/50mL 1 GM/50 ML BAG IVPB SCH ×2 (09:38→10:23)
[2020-08-11] MEDS: Multivit/Ca/Min/Fe/FA 1 TAB TABLET PO SCH (09:49)
[2020-08-11 09:59] LABS: ABG Base Excess 7 mEq/L (-2 to 3); ABG HCO3 32 mEq/L (21-27); ABG Oxygen Saturation 89 % (95-98); ABG PCO2 47 mmHg (35-45); ABG PH 7.44 pH Units (7.32-7.45); ABG PO2 54 mmHg (85-104); ABG TCO2 33 mEq/L (20-26)
[2020-08-11] MEDS ORDERED: MethylPREDNISolone 40 MG/ML VIAL IVP SCH (10:30)
[2020-08-11 12:13] LABS: ABG Base Excess 7 mEq/L (-2 to 3); ABG HCO3 32 mEq/L (21-27); ABG Oxygen Saturation 97 % (95-98); ABG PCO2 49 mmHg (35-45); ABG PH 7.42 pH Units (7.32-7.45); ABG PO2 95 mmHg (85-104); ABG TCO2 34 mEq/L (20-26)
[2020-08-11] MEDS ORDERED: Pantoprazole 40 MG VIAL IVP ONE (22:27)
[2020-08-11] MEDS ORDERED: Pantoprazole 80 MG in 0.9 % Sodium Chloride 50 ML IVPB ONE (22:45)
[2020-08-11] MEDS ORDERED: Octreotide 50 MCG/ML INJ IVP ONE (22:54)
[2020-08-11] MEDS: Ringers Solution, Lactated 1,000 ML IVC SCH (23:24)
[2020-08-11] MEDS: MethylPREDNISolone 40 MG/ML VIAL IVP SCH (23:33)
[2020-08-12 03:03] LABS: Hematocrit 23.4 % (37.5-50.1); Hemoglobin 7.9 g/dL (12.9-16.9); Mean Corpuscular HGB Conc 33.8 g/dL (31.6-35.5); Mean Corpuscular Hemoglobin 35.7 pg (28.0-33.3); Mean Corpuscular Volume 105.9 fL (83.0-100.0); Mean Platelet Volume 9.7 fL (9.4-12.4); Platelet Count 171 K/mcL (140-400); Red Blood Count 2.21 M/mcL (4.19-5.50); Red Cell Distribution Width 13.9 % (11.5-14.5); White Blood Count 7.2 K/mcL (4.3-11.1)
[2020-08-12 03:20] LABS: % Iron Saturation 22 % (20-55); Alanine Aminotransferase 31 Units/L (7-52); Albumin 2.9 g/dL (3.5-5.7); Albumin/Globulin Ratio 1.3 (1.1-2.2); Alkaline Phosphatase 54 Units/L (34-104); Aspartate Amino Transferase 54 Units/L (13-39); BUN/Creatinine Ratio 35 (6-26); Bilirubin,Total 0.5 mg/dL (0.3-1.0); Blood Urea Nitrogen 14 mg/dL (6-20); Carbon Dioxide 27 mEq/L (23-29); Chloride 93 mEq/L (98-107); Globulin 2.2 g/dL (2.4-3.5); Glucose 116 mg/dL (70-105); Iron 27 mcg/dL (65-175); Magnesium 1.8 mg/dL (1.6-2.6); Osmolality,Calculated 281 (280-300); Phosphorous 4.3 mg/dL (2.7-4.5); Sodium 135 mEq/L (136-145); Total Protein 5.1 g/dL (6.4-8.9); Transferrin 88 mg/dL (203-362); eGFR For African Americans > 60 (> 60); eGFR For Non-African Americans > 60 (> 60)
[2020-08-12 03:28] LABS: Procalcitonin 0.37 ng/mL (0.00-0.15)
[2020-08-12 03:39] LABS: Ferritin 635 ng/mL (20-250)
[2020-08-12 03:45] LABS: Folate 8.9 ng/mL (3.0-16.0)
[2020-08-12] MEDS: Ipratropium/Albuterol Neb 3 ML IH SCH ×6 (04:07→23:43)
[2020-08-12 04:24] LABS: ABG Base Excess 3 mEq/L (-2 to 3); ABG HCO3 30 mEq/L (21-27); ABG Oxygen Saturation 98 % (95-98); ABG PCO2 54 mmHg (35-45); ABG PH 7.35 pH Units (7.32-7.45); ABG PO2 116 mmHg (85-104); ABG TCO2 31 mEq/L (20-26)
[2020-08-12] MEDS: Pantoprazole 40 MG VIAL IVP SCH ×2 (06:04→18:10)
[2020-08-12] MEDS: Multivit/Ca/Min/Fe/FA 1 TAB TABLET PO SCH (07:58)
[2020-08-12] MEDS: Furosemide 20 MG/2 ML VIAL IVP SCH (08:18)
[2020-08-12] MEDS: Thiamine (B-1) 100 MG in 0.9 % Sodium Chloride 50 ML IVPB SCH (08:18)
[2020-08-12] MEDS: Budesonide/Formoterol 160/4.5 1 PUFF INH IH SCH ×2 (08:18→19:47)
[2020-08-12] MEDS: Cefepime HCl 2,000 MG in Water for inj. (sterile) 20 ML IVP SCH ×3 (08:18→21:59)
[2020-08-12] MEDS: Folic Acid 1 MG in 0.9 % Sodium Chloride 50 ML IVPB SCH (08:19)
[2020-08-12] MEDS: Octreotide 400 MCG in 0.9 % Sodium Chloride 100 ML IVC SCH ×3 (08:19→15:51)
[2020-08-12] MEDS ORDERED: *HR* Propofol 200 MG/20 ML VIAL IVP ONE (10:53)
[2020-08-12] MEDS: MethylPREDNISolone 40 MG/ML VIAL IVP SCH ×2 (12:04→21:59)
[2020-08-12 15:51] LABS: Hematocrit 23.1 % (37.5-50.1); Hemoglobin 7.9 g/dL (12.9-16.9)
[2020-08-12] MEDS ORDERED: *HR* LORazepam 2 MG/ML VIAL IVP PRN (20:06)
[2020-08-12] MEDS: Ringers Solution, Lactated 1,000 ML IVC SCH (21:57)
[2020-08-13] MEDS: Ipratropium/Albuterol Neb 3 ML IH SCH ×6 (03:28→23:38)
[2020-08-13 03:57] LABS: Hematocrit 22.4 % (37.5-50.1); Hemoglobin 7.6 g/dL (12.9-16.9); Immature Granulocytes % 1.2 % (0-4); Lymphocytes # 0.2 K/mcL (0.6-4.6); Lymphocytes % 2.8 %; Mean Corpuscular HGB Conc 33.9 g/dL (31.6-35.5); Mean Corpuscular Hemoglobin 35.2 pg (28.0-33.3); Mean Corpuscular Volume 103.7 fL (83.0-100.0); Mean Platelet Volume 9.8 fL (9.4-12.4); Monocytes # 0.4 K/mcL (0.0-1.3); Monocytes % 5.7 %; Neutrophils # 6.7 K/mcL (1.6-8.9); Platelet Count 196 K/mcL (140-400); Red Blood Count 2.16 M/mcL (4.19-5.50); Red Cell Distribution Width 13.8 % (11.5-14.5); Segmented Neutrophils % 90.3 %; White Blood Count 7.4 K/mcL (4.3-11.1)
[2020-08-13 04:10] LABS: Alanine Aminotransferase 28 Units/L (7-52); Albumin/Globulin Ratio 1.5 (1.1-2.2); Alkaline Phosphatase 47 Units/L (34-104); Aspartate Amino Transferase 33 Units/L (13-39); BUN/Creatinine Ratio 33 (6-26); Bilirubin,Total 0.4 mg/dL (0.3-1.0); Blood Urea Nitrogen 13 mg/dL (6-20); Carbon Dioxide 38 mEq/L (23-29); Chloride 92 mEq/L (98-107); Glucose 189 mg/dL (70-105); Magnesium 1.4 mg/dL (1.6-2.6); Osmolality,Calculated 295 (280-300); Potassium 2.8 mEq/L (3.5-5.1); Sodium 140 mEq/L (136-145); eGFR For African Americans > 60 (> 60); eGFR For Non-African Americans > 60 (> 60)
[2020-08-13] MEDS: Thiamine (B-1) 100 MG in 0.9 % Sodium Chloride 50 ML IVPB SCH (07:37)
[2020-08-13] MEDS: Folic Acid 1 MG in 0.9 % Sodium Chloride 50 ML IVPB SCH (07:37)
[2020-08-13] MEDS: Pantoprazole 40 MG VIAL IVP SCH (07:38)
[2020-08-13] MEDS: Multivit/Ca/Min/Fe/FA 1 TAB TABLET PO SCH (07:40)
[2020-08-13] MEDS: Cefepime HCl 2,000 MG in Water for inj. (sterile) 20 ML IVP SCH ×3 (07:40→23:38)
[2020-08-13] MEDS: Furosemide 20 MG/2 ML VIAL IVP SCH (07:40)
[2020-08-13] MEDS: Budesonide/Formoterol 160/4.5 1 PUFF INH IH SCH ×2 (08:11→20:09)
[2020-08-13] MEDS ORDERED: Iron Sucrose Complex 400 MG in 0.9 % Sodium Chloride 250 ML IVPB ONE (09:25)
[2020-08-13] MEDS: MethylPREDNISolone 40 MG/ML VIAL IVP SCH ×3 (10:02→23:39)
[2020-08-13 10:46] LABS: ABG Base Excess 18 mEq/L (-2 to 3); ABG HCO3 43 mEq/L (21-27); ABG Oxygen Saturation 93 % (95-98); ABG PCO2 59 mmHg (35-45); ABG PH 7.47 pH Units (7.32-7.45); ABG PO2 65 mmHg (85-104); ABG TCO2 45 mEq/L (20-26)
[2020-08-13] MEDS ORDERED: Glycopyrrolate 0.2 MG/ML VIAL IVP PRN (11:21)
[2020-08-13] MEDS: Nicotine 21 MG PATCH.TD24 TD SCH (14:51)
[2020-08-13] MEDS: Multivitamin Liquid 15 ML UDC PO SCH (14:57)
[2020-08-13 15:33] LABS: Basophils % 0.1 %; Hematocrit 23.5 % (37.5-50.1); Immature Granulocytes % 0.7 % (0-4); Lymphocytes # 0.2 K/mcL (0.6-4.6); Lymphocytes % 1.9 %; Mean Corpuscular Hemoglobin 35.6 pg (28.0-33.3); Mean Corpuscular Volume 104.4 fL (83.0-100.0); Mean Platelet Volume 9.4 fL (9.4-12.4); Monocytes # 0.5 K/mcL (0.0-1.3); Monocytes % 5.7 %; Neutrophils # 8.6 K/mcL (1.6-8.9); Platelet Count 190 K/mcL (140-400); Red Blood Count 2.25 M/mcL (4.19-5.50); Red Cell Distribution Width 13.8 % (11.5-14.5); Segmented Neutrophils % 91.6 %; White Blood Count 9.4 K/mcL (4.3-11.1)
[2020-08-13 16:05] LABS: BUN/Creatinine Ratio 30 (6-26); Blood Urea Nitrogen 10 mg/dL (6-20); Calcium 8.7 mg/dL (8.6-10.3); Carbon Dioxide 44 mEq/L (23-29); Chloride 88 mEq/L (98-107); Glucose 186 mg/dL (70-105); Magnesium 1.9 mg/dL (1.6-2.6); Osmolality,Calculated 294 (280-300); Potassium 2.8 mEq/L (3.5-5.1); Sodium 140 mEq/L (136-145); eGFR For African Americans > 60 (> 60); eGFR For Non-African Americans > 60 (> 60)
[2020-08-13] MEDS: 0.9 % Sodium Chloride w KCl 20 MEQ/1,000 ML MLS IVC SCH (18:08)
[2020-08-13] MEDS: *HR* LORazepam 2 MG/ML VIAL IVP PRN ×3 (18:46→23:39)
[2020-08-13] MEDS: Potassium Chloride Elixir 20 MEQ/15 ML UDC PO ONE ×2 (19:42→19:46)
[2020-08-13 22:25] LABS: BUN/Creatinine Ratio 24 (6-26); Blood Urea Nitrogen 8 mg/dL (6-20); Calcium 8.4 mg/dL (8.6-10.3); Carbon Dioxide 44 mEq/L (23-29); Chloride 87 mEq/L (98-107); Glucose 204 mg/dL (70-105); Osmolality,Calculated 290 (280-300); Potassium 2.9 mEq/L (3.5-5.1); Sodium 138 mEq/L (136-145); eGFR For African Americans > 60 (> 60); eGFR For Non-African Americans > 60 (> 60)
[2020-08-14] MEDS ORDERED: Haloperidol Lactate 5 MG/ML VIAL IVP ONE (01:09)
[2020-08-14] MEDS: Ipratropium/Albuterol Neb 3 ML IH SCH ×6 (03:40→23:47)
[2020-08-14 04:04] LABS: ABG Base Excess 25 mEq/L (-2 to 3); ABG HCO3 50 mEq/L (21-27); ABG Oxygen Saturation 99 % (95-98); ABG PCO2 61 mmHg (35-45); ABG PH 7.52 pH Units (7.32-7.45); ABG PO2 132 mmHg (85-104); ABG TCO2 > 50 mEq/L (20-26)
[2020-08-14 04:37] LABS: Hematocrit 23.2 % (37.5-50.1); Hemoglobin 7.9 g/dL (12.9-16.9); Lymphocytes # 0.2 K/mcL (0.6-4.6); Lymphocytes % 2.2 %; Mean Corpuscular HGB Conc 34.1 g/dL (31.6-35.5); Mean Corpuscular Hemoglobin 35.6 pg (28.0-33.3); Mean Corpuscular Volume 104.5 fL (83.0-100.0); Mean Platelet Volume 9.8 fL (9.4-12.4); Monocytes # 0.5 K/mcL (0.0-1.3); Monocytes % 5.1 %; Neutrophils # 8.3 K/mcL (1.6-8.9); Platelet Count 180 K/mcL (140-400); Red Blood Count 2.22 M/mcL (4.19-5.50); Red Cell Distribution Width 13.9 % (11.5-14.5); Segmented Neutrophils % 90.7 %; White Blood Count 9.2 K/mcL (4.3-11.1)
[2020-08-14 04:56] LABS: Alanine Aminotransferase 27 Units/L (7-52); Albumin 2.9 g/dL (3.5-5.7); Albumin/Globulin Ratio 1.5 (1.1-2.2); Alkaline Phosphatase 44 Units/L (34-104); Aspartate Amino Transferase 31 Units/L (13-39); BUN/Creatinine Ratio 27 (6-26); Bilirubin,Total 0.6 mg/dL (0.3-1.0); Blood Urea Nitrogen 8 mg/dL (6-20); Calcium 8.6 mg/dL (8.6-10.3); Carbon Dioxide > 45 mEq/L (23-29); Chloride 87 mEq/L (98-107); Glucose 193 mg/dL (70-105); Magnesium 1.8 mg/dL (1.6-2.6); Osmolality,Calculated 292 (280-300); Phosphorous 2.4 mg/dL (2.7-4.5); Potassium 2.5 mEq/L (3.5-5.1); Sodium 139 mEq/L (136-145); Total Protein 4.9 g/dL (6.4-8.9); eGFR For African Americans > 60 (> 60); eGFR For Non-African Americans > 60 (> 60)
[2020-08-14] MEDS: Budesonide/Formoterol 160/4.5 1 PUFF INH IH SCH ×2 (07:40→20:18)
[2020-08-14] MEDS: 0.9 % Sodium Chloride w KCl 20 MEQ/1,000 ML MLS IVC SCH (07:57)
[2020-08-14] MEDS: Cefepime HCl 2,000 MG in Water for inj. (sterile) 20 ML IVP SCH ×3 (07:58→23:19)
[2020-08-14] MEDS: MethylPREDNISolone 40 MG/ML VIAL IVP SCH ×3 (07:59→23:19)
[2020-08-14] MEDS: Nicotine 21 MG PATCH.TD24 TD SCH (08:06)
[2020-08-14] MEDS: Folic Acid 1 MG in 0.9 % Sodium Chloride 50 ML IVPB SCH (08:21)
[2020-08-14] MEDS: Pantoprazole 40 MG VIAL IVP SCH (08:21)
[2020-08-14] MEDS: Thiamine (B-1) 100 MG in 0.9 % Sodium Chloride 50 ML IVPB SCH (08:21)
[2020-08-14] MEDS: Multivitamin Liquid 15 ML UDC PO SCH (08:22)
[2020-08-14] MEDS ORDERED: Furosemide 40 MG/4 ML VIAL IVP SCH (09:30)
[2020-08-14] MEDS: *HR* LORazepam 2 MG/ML VIAL IVP PRN ×3 (10:04→23:58)
[2020-08-14] MEDS ORDERED: Perflutren Lipid Microsphere 1.3 ML in 0.9 % Sodium Chloride 8.7 ML IVP PRN (11:30)
[2020-08-14] MEDS ORDERED: E-Z-PAQUE (BARIUM SULF) SUSP 1 BOTTLE PO ONE (13:20)
[2020-08-14] MEDS ORDERED: E-Z-HD (BARIUM SULF) SUSPENSION PO ONE (13:20)
[2020-08-14] MEDS ORDERED: Furosemide 20 MG/2 ML VIAL IVP ONE (15:51)
[2020-08-14] MEDS: Furosemide 40 MG/4 ML VIAL IVP SCH (20:06)
[2020-08-14] MEDS: MetroNIDAZOLE 500 MG/100 ML 500 MG/100 ML BAG IVPB SCH (21:46)
[2020-08-14 23:06] LABS: BUN/Creatinine Ratio 31 (6-26); Blood Urea Nitrogen 10 mg/dL (6-20); Calcium 8.2 mg/dL (8.6-10.3); Carbon Dioxide > 45 mEq/L (23-29); Chloride 82 mEq/L (98-107); Glucose 189 mg/dL (70-105); Osmolality,Calculated 290 (280-300); Potassium 2.8 mEq/L (3.5-5.1); Sodium 138 mEq/L (136-145); eGFR For African Americans > 60 (> 60); eGFR For Non-African Americans > 60 (> 60)
[2020-08-15] MEDS: Ipratropium/Albuterol Neb 3 ML IH SCH ×5 (04:09→20:14)
[2020-08-15 04:58] LABS: Basophils % 0.2 %; Hematocrit 23.3 % (37.5-50.1); Hemoglobin 7.8 g/dL (12.9-16.9); Immature Granulocytes % 1.6 % (0-4); Lymphocytes # 0.2 K/mcL (0.6-4.6); Lymphocytes % 1.8 %; Mean Corpuscular HGB Conc 33.5 g/dL (31.6-35.5); Mean Corpuscular Hemoglobin 35.3 pg (28.0-33.3); Mean Corpuscular Volume 105.4 fL (83.0-100.0); Mean Platelet Volume 9.8 fL (9.4-12.4); Monocytes # 0.5 K/mcL (0.0-1.3); Monocytes % 4.5 %; Neutrophils # 10.5 K/mcL (1.6-8.9); Platelet Count 134 K/mcL (140-400); Red Blood Count 2.21 M/mcL (4.19-5.50); Red Cell Distribution Width 13.5 % (11.5-14.5); Segmented Neutrophils % 91.9 %; White Blood Count 11.4 K/mcL (4.3-11.1)
[2020-08-15 05:24] LABS: Alanine Aminotransferase 37 Units/L (7-52); Albumin 2.9 g/dL (3.5-5.7); Albumin/Globulin Ratio 1.5 (1.1-2.2); Alkaline Phosphatase 46 Units/L (34-104); Aspartate Amino Transferase 51 Units/L (13-39); BUN/Creatinine Ratio 26 (6-26); Bilirubin,Total 0.6 mg/dL (0.3-1.0); Blood Urea Nitrogen 10 mg/dL (6-20); Calcium 8.4 mg/dL (8.6-10.3); Carbon Dioxide > 45 mEq/L (23-29); Chloride 81 mEq/L (98-107); Globulin 1.9 g/dL (2.4-3.5); Glucose 207 mg/dL (70-105); Magnesium 1.2 mg/dL (1.6-2.6); Osmolality,Calculated 291 (280-300); Phosphorous 1.8 mg/dL (2.7-4.5); Potassium 2.8 mEq/L (3.5-5.1); Sodium 138 mEq/L (136-145); Total Protein 4.8 g/dL (6.4-8.9); eGFR For African Americans > 60 (> 60); eGFR For Non-African Americans > 60 (> 60)
[2020-08-15] MEDS: MetroNIDAZOLE 500 MG/100 ML 500 MG/100 ML BAG IVPB SCH ×3 (05:45→21:35)
[2020-08-15] MEDS: Budesonide/Formoterol 160/4.5 1 PUFF INH IH SCH ×2 (07:49→20:14)
[2020-08-15] MEDS: Cefepime HCl 2,000 MG in Water for inj. (sterile) 20 ML IVP SCH ×2 (07:57→15:42)
[2020-08-15] MEDS: Multivit/Ca/Min/Fe/FA 1 TAB TABLET PO SCH (07:57)
[2020-08-15] MEDS: Furosemide 40 MG/4 ML VIAL IVP SCH ×3 (07:57→21:35)
[2020-08-15] MEDS: Folic Acid 1 MG TABLET PO SCH (07:57)
[2020-08-15] MEDS: Thiamine (B-1) 100 MG TABLET PO SCH (07:57)
[2020-08-15] MEDS: MethylPREDNISolone 40 MG/ML VIAL IVP SCH ×2 (07:58→15:44)
[2020-08-15] MEDS: Nicotine 21 MG PATCH.TD24 TD SCH (07:58)
[2020-08-15] MEDS: Pantoprazole 40 MG VIAL IVP SCH (07:59)
[2020-08-15] MEDS ORDERED: Potassium Phosphate 44 MEQ in 0.9 % Sodium Chloride 250 ML IVPB ONE ×2 (08:10→17:17)
[2020-08-15] MEDS ORDERED: Piperacillin/Tazobactam 3.375 GM in 0.9 % Sodium Chloride Mini Bag 100 ML IVPB SCH ×2 (08:45→16:00)
[2020-08-15] MEDS: Albumin 25% 25gram/100mL 25 GM/100 ML IV.SOLN IVPB SCH ×3 (08:56→19:29)
[2020-08-15] MEDS: Calcium Gluconate 1gm/50mL 1 GM/50 ML BAG IVPB SCH ×2 (08:56→10:02)
[2020-08-15 10:39] LABS: ABG Base Excess > 30 mEq/L (-2 to 3); ABG HCO3 58 mEq/L (21-27); ABG Oxygen Saturation 91 % (95-98); ABG PCO2 70 mmHg (35-45); ABG PH 7.53 pH Units (7.32-7.45); ABG PO2 58 mmHg (85-104); ABG TCO2 > 50 mEq/L (20-26)
[2020-08-15] MEDS: levoFLOXacin 750 MG/150 ML 750 MG/150 ML BAG IVPB SCH (11:25)
[2020-08-15 12:00] LABS: Amylase 75 Units/L (29-103); Lipase 62 Units/L (11-82)
[2020-08-15 16:40] LABS: BUN/Creatinine Ratio 30 (6-26); Blood Urea Nitrogen 12 mg/dL (6-20); Calcium 8.7 mg/dL (8.6-10.3); Carbon Dioxide > 45 mEq/L (23-29); Chloride 77 mEq/L (98-107); Glucose 148 mg/dL (70-105); Magnesium 1.8 mg/dL (1.6-2.6); Osmolality,Calculated 291 (280-300); Phosphorous 2.5 mg/dL (2.7-4.5); Potassium 2.1 mEq/L (3.5-5.1); Sodium 139 mEq/L (136-145); eGFR For African Americans > 60 (> 60); eGFR For Non-African Americans > 60 (> 60)
[2020-08-16] MEDS: Ipratropium/Albuterol Neb 3 ML IH SCH ×5 (00:05→15:59)
[2020-08-16] MEDS: Cefepime HCl 2,000 MG in Water for inj. (sterile) 20 ML IVP SCH ×3 (00:07→14:42)
[2020-08-16] MEDS: MethylPREDNISolone 40 MG/ML VIAL IVP SCH ×3 (00:08→14:42)
[2020-08-16] MEDS: MetroNIDAZOLE 500 MG/100 ML 500 MG/100 ML BAG IVPB SCH ×2 (05:11→11:59)
[2020-08-16 05:35] LABS: Basophils % 0.1 %; Hematocrit 22.6 % (37.5-50.1); Hemoglobin 7.6 g/dL (12.9-16.9); Immature Granulocytes % 1.7 % (0-4); Lymphocytes # 0.2 K/mcL (0.6-4.6); Lymphocytes % 1.5 %; Mean Corpuscular HGB Conc 33.6 g/dL (31.6-35.5); Mean Corpuscular Volume 107.1 fL (83.0-100.0); Mean Platelet Volume 10.7 fL (9.4-12.4); Monocytes # 0.5 K/mcL (0.0-1.3); Neutrophils # 13.9 K/mcL (1.6-8.9); Platelet Count 115 K/mcL (140-400); Red Blood Count 2.11 M/mcL (4.19-5.50); Red Cell Distribution Width 13.4 % (11.5-14.5); Segmented Neutrophils % 93.7 %; White Blood Count 14.9 K/mcL (4.3-11.1)
[2020-08-16 05:57] LABS: Alanine Aminotransferase 26 Units/L (7-52); Albumin 3.9 g/dL (3.5-5.7); Albumin/Globulin Ratio 2.8 (1.1-2.2); Alkaline Phosphatase 36 Units/L (34-104); Aspartate Amino Transferase 26 Units/L (13-39); BUN/Creatinine Ratio 31 (6-26); Bilirubin,Total 0.7 mg/dL (0.3-1.0); Blood Urea Nitrogen 11 mg/dL (6-20); Calcium 8.8 mg/dL (8.6-10.3); Carbon Dioxide > 45 mEq/L (23-29); Chloride 77 mEq/L (98-107); Globulin 1.4 g/dL (2.4-3.5); Glucose 163 mg/dL (70-105); Magnesium 1.9 mg/dL (1.6-2.6); Osmolality,Calculated 295 (280-300); Phosphorous 3.7 mg/dL (2.7-4.5); Potassium 2.3 mEq/L (3.5-5.1); Sodium 141 mEq/L (136-145); Total Protein 5.3 g/dL (6.4-8.9); eGFR For African Americans > 60 (> 60); eGFR For Non-African Americans > 60 (> 60)
[2020-08-16] MEDS ORDERED: Potassium Chloride 40 MEQ, Lidocaine 1% 2 ML in 0.9 % Sodium Chloride 500 ML IVPB ONE ×2 (06:11→13:06)
[2020-08-16] MEDS ORDERED: Potassium Chloride Elixir 20 MEQ/15 ML UDC PO ONE (06:11)
[2020-08-16] MEDS: Budesonide/Formoterol 160/4.5 1 PUFF INH IH SCH (07:51)
[2020-08-16] MEDS: Multivit/Ca/Min/Fe/FA 1 TAB TABLET PO SCH ×2 (09:16→10:01)
[2020-08-16] MEDS: Thiamine (B-1) 100 MG TABLET PO SCH ×2 (09:16→10:01)
[2020-08-16] MEDS: Nicotine 21 MG PATCH.TD24 TD SCH (09:16)
[2020-08-16] MEDS: Pantoprazole 40 MG VIAL IVP SCH (09:19)
[2020-08-16] MEDS: Folic Acid 1 MG TABLET PO SCH ×2 (09:21→10:00)
[2020-08-16] MEDS: levoFLOXacin 750 MG/150 ML 750 MG/150 ML BAG IVPB SCH (09:21)
[2020-08-16 10:59] VITALS: BP 148/116
[2020-08-16] MEDS: Morphine Sulfate 2 MG/ML SYRINGE IVP PRN ×2 (11:58→16:05)
[2020-08-16] MEDS: Albumin 25% 25gram/100mL 25 GM/100 ML IV.SOLN IVPB SCH ×2 (11:59→14:42)
[2020-08-16] MEDS ORDERED: Scopolamine Patch 1.5 MG PATCH.TD72 TD SCH (12:00)
[2020-08-16] MEDS: *HR* LORazepam 2 MG/ML VIAL IVP PRN ×2 (12:59→16:05)
== END 2020-08-16 18:55 | disposition expired | DRG 207 ==
LOC: EMEROOARM 14:17 → ICNU 14:17 → SUATTDRO 19:35 → ICNU 20:23 → 2ANU 08-10 15:56 → 2NNU 08-11 13:37
PROVIDERS: ADMIT Internal Medicine; ATTEND Internal Medicine
PROC: ENDOEBX (2020-08-12 10:30)